=== PATIENT | male | born 2000 | race Two or more races ===

== ENCOUNTER 2020-10-18 18:25 | Emergency (ER) | payer OTHER ==
[~2020-10-18] VITALS: Ht 172.7 cm; Wt 84.0 kg
--- NOTE | 2020-10-18 18:53 | PHYS DOC ---
Past History Past Medical History: No Pertinent History Past Surgical History: Tonsillectomy, Other Additional Past Surgical Histo: right hand. Alcohol Use: None Adult General Chief Complaint Chief Complaint: CHEST PAIN HPI HPI Patient is a 20-year-old male, otherwise healthy who presents with a chief complaint of chest wall pain. States he was lifting his garage door a few days ago and had a twinge of pain in his right chest and today was in the bathroom putting on hair gel and when he lifted his arm up to his hair felt the same thing. States that currently he does not have any chest pain but if he twists or tries to lift anything he feels a pain in his ribs just under his right breast, 5 out of 10, dull and achy in nature. Denies any other injuries. Denies shortness of breath, abdominal pain, nausea, vomiting. Review of Systems Review of Systems Review of systems otherwise unremarkable except noted in HPI Current Medications Current Medications Current Medications Medications (Trade) Dose Ordered Sig/Lilibeth Start Time Stop Time Status Last Admin Dose Admin Ibuprofen (Motrin) 600 mg 1X ONCE 10/18/20 19:00 10/18/20 19:01 UNV Allergies Allergies Allergies Coded Allergies Type Severity Reaction Last Updated Verified No Known Drug Allergies 10/18/20 No Physical Exam Physical Exam Constitutional: Well developed, well nourished, no acute distress, non-toxic ap pearance. [] Cardiovascular:Heart rate regular rhythm, no murmur [] Lungs & Thorax: Bilateral breath sounds clear to auscultation [] Abdomen: soft, no tenderness, no masses, no pulsatile masses. [] Skin: Warm, dry, no erythema, no rash. [] Back: No tenderness, no CVA tenderness. [] Extremities: No tenderness, ROM intact, Neurologic: Alert and oriented X 3, no focal deficits noted. [] Psychologic: Affect normal, judgement normal, mood normal. [] Current Patient Data Vital Signs Vital Signs Date Time Temp Pulse Resp B/P (MAP) Pulse Ox O2 Delivery O2 Flow Rate FiO2 10/18/20 18:32 98.0 55 16 160/82 (108) 99 Room Air EKG EKG EKG with a rate of 56, QRS of 100, QTc 371, no STEMI, benign early repole [] Radiology/Procedures Radiology/Procedures [] EXAM: Chest, single view. HISTORY: Chest wall pain. COMPARISON: None. FINDINGS: A frontal view of the chest is obtained. There is no infiltrate, pleural effusion or pneumothorax. The heart is prominent in size, likely accentuated due to portable technique. IMPRESSION: No acute pulmonary finding. Electronically signed by: Dotty Romo MD (10/18/2020 7:04 PM) [facility] Heart Score C/O Chest Pain: N/A Risk Factors: Risk Factors: DM, Current or recent (<one month) smoker, HTN, HLP, family history of CAD, obesity. Risk Scores: Risk Factors: DM, Current or recent (<one month) smoker, HTN, HLP, family history of CAD, obesity. Course & Med Decision Making Course & Med Decision Making Patient is a 20-year-old male who presents with chest wall pain Vital signs not concerning. Physical exam noted above. EKG noted above. Heart score 0. Low risk Wells. PERC negative. Given ibuprofen. Discussed all findings with patient and given age, risk factors and history and story, patient's etiology sounds musculoskeletal in nature. Advised on pain control at home. Advised to follow-up with his physician first thing Wednesday morning though to discuss ED visit and set up follow-ups as needed. Gave return precautions to the ED. Patient grateful, verbalized understanding and agreed with plan of discharge. [] Dragon Disclaimer Dragon Disclaimer This electronic medical record was generated, in whole or in part, using a voice recognition dictation system. Departure Departure: Disposition: HOME / SELF CARE / HOMELESS Condition: GOOD Referrals: AMELIA BOWERS (PCP) Patient Instructions: Chest Wall Pain, [id number] Additional Instructions: Please read all the attached information. Your imaging and work-up today did not show any broken bones in your chest. Your EKG, looking at your heart was normal. Please continue a Tylenol, ibuprofen and ice regimen at home as discussed. Please follow-up with your primary care physician as soon as you can to update on ED visit and set up a follow-up visit. Please come back to the ED with new or concerning symptoms as discussed. ALIRIO PEREZ MD Oct 18, 2020 18:53
[2020-10-18] MEDS ORDERED: IBUPROFEN 600 MG TABLET. PO ONE (19:00)
--- NOTE | 2020-10-18 19:06 | RAD ---
EXAM: Chest, single view. HISTORY: Chest wall pain. COMPARISON: None. FINDINGS: A frontal view of the chest is obtained. There is no infiltrate, pleural effusion or pneumo thorax. The heart is prominent in size, likely accentuated due to portable technique. IMPRESSION: No acute pulmonary finding. Electronically signed by: Dotty Romo MD (10/18/2020 7:04 PM) [facility]
[2020-10-18 19:28] VITALS: BP 153/80
--- NOTE | 2020-10-18 21:04 | EKG ---
[address] [address] Test Date: 2020-10-18 Test Time: 18:53:22 Pat Name: DEVON HOPPER Department: Room: Gender: [employer] Super[employer]: : 2000 Requested By: ALIRIO PEREZ Order Number: [id number] Reading MD: Measurements Intervals [place] Rate: 56 P: 15 KS: 152 QRS: 59 QRSD: 100 T: 25 QT: 382 QTc: 371 Interpretive Statements SINUS RHYTHM OTHERWISE NORMAL ECG RI6.02 No previous ECG available for comparison
== END 2020-10-18 19:41 | disposition home or self-care (01) ==
LOC: ER 18:25
DX: R07.89 Other chest pain (principal)
CPT/HCPCS: 71045; 93005; 99283

== ENCOUNTER 2021-10-10 09:11 | Emergency (ER) | payer OTHER ==
[~2021-10-10] VITALS: Ht 177.8 cm; Wt 95.8 kg
[2021-10-10] MEDS ORDERED: KETOROLAC 15 MG/ML VIAL. IVP ONE (09:45)
[2021-10-10] MEDS ORDERED: diphenhydrAMINE 50 MG/ML VIAL IVP ONE ×2 (09:45→11:45)
[2021-10-10] MEDS ORDERED: IV NORMAL SALINE 1,000ML 1,000 ML IV ONE (09:45)
[2021-10-10] MEDS ORDERED: METOCLOPRAMIDE HCL 10 MG/2 ML VIAL. IVP ONE ×2 (09:45→11:45)
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
[2021-10-10 10:14] LABS: BASO % 1 % (0-3); EOS % 0 % (0-3); HEMATOCRIT 41.8 % (39.0-53.0); HEMOGLOBIN 13.7 g/dL (13.0-17.5); LYMPH # 0.9 x10^3/uL (1.0-4.8); LYMPH % 27 % (24-48); MEAN CORPUSCULAR HEMOGLOBIN 25 pg (25-35); MEAN CORPUSCULAR HGB CONC 33 g/dL (31-37); MEAN CORPUSCULAR VOLUME 77 fL (79-100); MONO # 0.3 x10^3/uL (0.0-1.1); MONO % 10 % (0-9); NEUT # 2.1 x10^3uL (1.8-7.7); NEUT % 62 % (31-73); PLATELET COUNT 199 x10^3/uL (140-400); RED CELL DISTRIBUTION WIDTH 14.5 % (11.5-14.5); WHITE BLOOD COUNT 3.4 x10^3/uL (4.0-11.0)
[2021-10-10 10:22] LABS: CALCIUM 8.9 mg/dL (8.5-10.1); CREATININE 0.8 mg/dL (0.7-1.3); GFR 119.8; POTASSIUM 4.3 mmol/L (3.5-5.1)
[2021-10-10 10:28] LABS: ALBUMIN 3.4 g/dL (3.4-5.0); TOTAL BILIRUBIN 0.3 mg/dL (0.2-1.0); TOTAL PROTEIN 6.8 g/dL (6.4-8.2)
[2021-10-10] MEDS ORDERED: methylPREDNISolone SOD SUCC PF 125 MG/2 ML VIAL. IV ONE (11:45)
[2021-10-10] MEDS ORDERED: MORPHINE SULFATE 4 MG/ML DISP.SYRIN. IV ONE (11:45)
[2021-10-10 13:45] VITALS: BP 133/63
== END 2021-10-10 12:45 | disposition home or self-care (01) ==
LOC: ER 09:11
DX: G43.011 Migraine without aura, intractable, with status migrainosus (principal)
CPT/HCPCS: 36415; 80053; 85025; 96361; 96374; 96375; 96376; 99285; J1200; J1885; J2765; J2930; J7030